=== PATIENT | female | born 1950 | race Caucasian/White ===

== ENCOUNTER → 2017-03-29 | Outpatient (CLI) | payer MEDICARE, OTHER | LOC: EXRD 10:50 | DX: J45.909 Unspecified asthma, uncomplicated (principal); R07.9 Chest pain, unspecified; T71.9XXA Asphyxiation due to unspecified cause, initial encounter; R91.8 Other nonspecific abnormal finding of lung field | CPT/HCPCS: 71020 ==

== ENCOUNTER 2020-11-21 09:43 | Emergency (ER) | payer MEDICARE, OTHER ==
[~2020-11-21 09:43] MED LIST: CELEXA20 MG PO; CLARITIN-D 241 EACH PO; COENZYME Q1030 MG PO; COMPAZINE10 MG PO; CRESTOR10 MG PO; CYANOCOBAL1000 MCG/1 INJ; DIPROSONE 0.05%15 GM EXT; ESOMEPRAZOLE STRONTIUM PO; ESTRACE42.5 GM VG; MAGOX 400400 MG PO; MAXALT MLT10 MG PO; MULTIVITAMINS1 EAC1 PO; PHENTERMINE H37.5 M1 PO; PROAIR HFA8.5 GM INH; QVAR INH; RELPAX40 MG PO; SYNTHROID175 MCG PO; ULTRAM ER PO; VITAMIN B-121000 MCG IM; VITAMIN D35000 UNI1 PO; ZANAFLEX4 MG PO; ZOFRAN ODT 4 MG4 MG PO; ZOLPIDEM TARTRA10 MG PO
[2020-11-21 10:08] LABS: HEMOGLOBIN 14.7 gm/dl (12.3-15.3); RED BLOOD COUNT 4.96 M/UL (4.00-5.10)
[2020-11-21 10:45] LABS: BUN/CREATININE RATIO 19 (0-10)
== END 2020-11-21 11:06 | disposition short-term general hospital (02) ==
LOC: ER1 09:43
PROVIDERS: Emergency Medicine
DX: I63.9 Cerebral infarction, unspecified (principal); G81.94 Hemiplegia, unspecified affecting left nondominant side; G81.93 Hemiplegia, unspecified affecting right nondominant side; R29.705 NIHSS score 5; Z88.2 Allergy status to sulfonamides; Z87.19 Personal history of other diseases of the digestive system
CPT/HCPCS: 70450; 71045; 80053; 82550; 82553; 82962; 83874; 84484; 85025; 85610; 85730; 99285; J2997

== ENCOUNTER → 2020-11-26 | Outpatient (CLI) | payer MEDICARE, OTHER ==
[2020-11-27 11:12] LABS: RHEUMATOID ARTHRITIS FACTOR <10.0 IU/mL (0.0-13.9)
[2020-11-27 23:07] LABS: CCP ANTIBODIES IGG/IGA 6 units (0-19)
== END ==
LOC: LAB 10:57
PROVIDERS: Nurse Practitioner Family
DX: E53.8 Deficiency of other specified B group vitamins (principal); K75.4 Autoimmune hepatitis; R76.8 Other specified abnormal immunological findings in serum; E78.00 Pure hypercholesterolemia, unspecified; I63.9 Cerebral infarction, unspecified; R07.9 Chest pain, unspecified; M54.9 Dorsalgia, unspecified; M25.552 Pain in left hip; D89.89 Other specified disorders involving the immune mechanism, not elsewhere classified; M25.78 Osteophyte, vertebrae; M47.816 Spondylosis without myelopathy or radiculopathy, lumbar region; M85.88 Other specified disorders of bone density and structure, other site; R00.2 Palpitations
CPT/HCPCS: 36415; 72100; 73502; 81001; 82570; 83520; 84156; 86200; 86431

== ENCOUNTER → 2020-12-09 | Outpatient (CLI) | payer MEDICARE, OTHER | LOC: KOH-I 12-04 08:00 | DX: K75.4 Autoimmune hepatitis (principal); R10.11 Right upper quadrant pain; K76.0 Fatty (change of) liver, not elsewhere classified; N28.1 Cyst of kidney, acquired; I65.23 Occlusion and stenosis of bilateral carotid arteries | CPT/HCPCS: 76705; 93880 ==

== ENCOUNTER → 2021-05-27 | Outpatient (CLI) | payer MEDICARE, OTHER | LOC: CT 08:29 | DX: R91.1 Solitary pulmonary nodule (principal); Z77.098 Contact with and (suspected) exposure to other hazardous, chiefly nonmedicinal, chemicals; R91.8 Other nonspecific abnormal finding of lung field | CPT/HCPCS: 36415; 71260; 82565; Q9967 ==

== ENCOUNTER 2021-08-28 11:44 | Emergency (ER) | payer MEDICARE, OTHER ==
[~2021-08-28] VITALS: Ht 170.2 cm; Wt 79.4 kg
== END 2021-08-28 14:30 | disposition home or self-care (01) ==
LOC: ER1 11:44
DX: U07.1 COVID-19 (principal); Z90.710 Acquired absence of both cervix and uterus; Z23 Encounter for immunization
CPT/HCPCS: 99283; M0243

== ENCOUNTER → 2021-09-08 | Outpatient (CLI) | payer MEDICARE, OTHER | LOC: RAD 17:12 | DX: M79.672 Pain in left foot (principal); S99.929A Unspecified injury of unspecified foot, initial encounter; M79.89 Other specified soft tissue disorders; M25.473 Effusion, unspecified ankle | CPT/HCPCS: 73610; 73630 ==

== ENCOUNTER → 2021-11-16 | Outpatient (CLI) | payer MEDICARE, OTHER | LOC: CT 11:42 | DX: R10.11 Right upper quadrant pain (principal); K75.4 Autoimmune hepatitis; K52.9 Noninfective gastroenteritis and colitis, unspecified; R10.13 Epigastric pain; R10.32 Left lower quadrant pain; R11.2 Nausea with vomiting, unspecified; R74.8 Abnormal levels of other serum enzymes; K44.9 Diaphragmatic hernia without obstruction or gangrene; K59.00 Constipation, unspecified | CPT/HCPCS: Q9967 ==